=== PATIENT | male | born 1995 | race Caucasian/White ===

== ENCOUNTER 2018-02-08 08:53 | Emergency (ER) | payer BC ==
[2018-02-08] MEDS ORDERED: Tetan/Diph/Pertus SYR(Tdap)* 0.5 ML SYR(BOOSTRIX) use SYR IM ONE (09:12)
--- NOTE | 2018-02-08 10:16 | RAD ---
HISTORY: Right testicular pain COMPARISONS: None TECHNIQUE: Multiple transverse and longitudinal ultrasound images were obtained of the scrotum, using grayscale, color Doppler, and spectral Doppler imaging. FINDINGS: RIGHT: RIGHT TESTICLE: The right testicle measures 5.1 x 2.6 x 3.1 cm. The right testicle is homogeneous in echotexture, without testicular parenchymal mass. Normal arterial and venous waveforms are identified within the right testicle on spectral Doppler imaging. RIGHT EPIDIDYMIS: The right epididymis measures 1.1 cm at the head. There is a 0.2 cm epididymal head cyst. RIGHT SCROTUM: There is no hydrocele or varicocele. LEFT: LEFT TESTICLE: The left testicle measures 5.2 x 2.7 x 3.1 cm. The left testicle is homogeneous in echotexture, without testicular parenchymal mass. Normal arterial and venous waveforms are identified within the left testicle on spectral Doppler imaging. LEFT EPIDIDYMIS: The left epididymis measures 1.3 cm at the head. LEFT SCROTUM: There is no hydrocele or varicocele. OTHER: None IMPRESSION: 1. NO TESTICULAR PARENCHYMAL MASS. 2. NO SONOGRAPHIC FEATURES OF TORSION. PLEASE NOTE THAT PARTIAL OR INTERMITTENT TORSION MAY BE SONOGRAPHICALLY NORMAL.
[2018-02-08 10:44] LABS: Urine Appearance Clear; Urine Blood Negative (Negative); Urine Color Yellow; Urine Ketones Trace (Negative); Urine Protein Negative (Negative); Urine Specific Gravity 1.015 (1.010-1.030); Urine Urobilinogen Negative (Negative)
--- NOTE | 2018-02-08 10:49 | ED ---
Complaint/Male - History of Current Complaint Chief Complaint: EDUrogenitalProblems Time Seen by Provider: 02/08/18 08:55 Hx Obtained From: Patient Onset/Duration: Gradual Onset Timing: Constant Severity Initially: Mild Severity Currently: Moderate Location: Testicle Character: Sharp, Constant Pressure Aggravating Factor(s): Nothing Associated Signs And Symptoms: Negative - Risk Factors Testicular Torsion: Negative - Allergies/Home Medications Allergies/Adverse Reactions: Allergies Allergy/AdvReac Type Severity Reaction Status Date / Time No Known Allergies Allergy Verified 02/08/18 09:13 PMH/Surg Hx/FS Hx/Imm Hx Previously Healthy: Yes - Immunization History Hx Pertussis Vaccination: No Immunizations Up to Date: Unable to Obtain/Confirm Infectious Disease History: No Infectious Disease History: Denies: Traveled Outside the [place] in Last 30 Days - Social History Occupation: Unemployed Lives: With Family Alcohol Use: Occasionally Hx Substance Use: No Substance Use Type: Reports: None Hx Tobacco Use: No Smoking Status (MU): Never Smoked Tobacco Review Of Systems Constitutional: Positive: Negative. Negative: Fever, Fatigue Skin: Negative: Rash, Bruising Eyes: Positive: Negative Respiratory: Positive: Negative Cardiovascular: Positive: Negative Gastrointestinal: Negative: Abdominal Pain, Vomiting, Diarrhea, Nausea Genitourinary: Positive: Other - R testicular pain. Negative: Dysuria, Hematuria, Frequency, Urgency Musculoskeletal: Positive: Negative Neurological: Positive: Negative All Other Systems Reviewed And Are Negative: Yes Physical Exam Triage Information Reviewed: Yes Vital Signs On Initial Exam: Initial Vitals Temp Pulse Resp BP Pulse Ox 97.1 F 94 16 162/101 99 02/08/18 09:13 02/08/18 09:13 02/08/18 09:13 02/08/18 09:13 02/08/18 09:13 Vital Signs Reviewed: Yes Appearance: Positive: Well-Appearing, Well-Nourished Skin: Positive: Warm, Skin Color Reflects Adequate Perfusion Head/Face: Positive: Normal Head/Face Inspection Neck: Positive: Supple, No Lymphadenopathy Respiratory/Lung Sounds: Positive: Clear to Auscultation, Breath Sounds Present Cardiovascular: Positive: RRR, Pulses are Symmetrical in both Upper and Lower Extremities Male Genital Exam: Positive: Testicular Tenderness (R) Musculoskeletal: Positive: Normal, Strength/ROM Intact Neurological: Positive: Sensory/Motor Intact, Alert, Oriented to Person Place, Time, Speech Normal Psychiatric: Positive: Affect/Mood Appropriate AVPU Assessment: Alert Diagnostics - Vital Signs Vital Signs Temp Pulse Resp BP Pulse Ox 02/08/18 09:13 97.1 F 94 16 162/101 99 - Laboratory Lab Statement: Any lab studies that have been ordered have been reviewed, and results considered in the medical decision making process. Complaint Male Course/Dx - Course Course Of Treatment: HPI: Patient is a 22-year-old male presenting from [address] [place] [address] urgent care with chief complaint of right testicular pain. Symptoms began approximately 3 days ago and was a dull ache, however upon awakening this morning, he notes a 10 out of 10 pain, acute onset. Denies any history or chance of STDs. Patient states he is not sexually active. He has never had these symptoms before. He denies any fevers, sweats, chills. Denies any erythema to the area. Pain is worse with palpation. He denies any UTI symptoms including urinary frequency, urgency or dysuria. He has never had an inguinal or scrotal surgery. Denies any abdominal pain, pain to the inguinal region. He is otherwise healthy and takes no medications. Course of Treatment: during the course of treatment, the first priority was to evaluate a surgical emergency to rule out testicular torsion. A small cremaster reflex is identified. There is no inguinal hernia on physical exam and no bulges. There is no discoloration to the testes. There does not appear to be any swelling or specific tenderness posteriorly to the cord. However, diffuse tenderness on palpation is noted at 10/10 per patient. There is no palpable cooperative deformity. There is no palpable mass and patient does not have a rash concerning for HSP or vasculitis otherwise. Ultrasound obtained is negative for any torsion. Acute epididymitis is the most likely etiology, although no specific pain to the epididymal cord. Will treat empirically with Levaquin 500 mg once daily 10 days. He will follow-up with urology for any worsening symptoms. This patient is not sexually active, he will not be treated for GC/ chlamydia. Urine obtained with GC/chlamydia and will contact patient if antibiotic needs to be changed. - Differential Dx/Diagnosis Differential Diagnosis/HQI/PQRI: Epididymitis, Prostatitis, Testicular Torsion, Trauma Provider Diagnoses: Epididymitis
[2018-02-08 11:01] VITALS: BP 145/100
== END 2018-02-08 11:00 | disposition home or self-care (01) ==
LOC: ED 08:53
DX: N45.1 Epididymitis (principal)
CPT/HCPCS: 76870; 81003; 87491; 87591; 90471; 99282